=== PATIENT | female | born 1995 | race Hispanic/Latino ===

== ENCOUNTER 2019-08-01 12:52 | Emergency (ER) | payer OTHER, SELFPAY ==
[2019-08-01 12:59] VITALS: BP 121/58; PULSE 90; RESP 17; TEMP 37.2; O2SAT 100
[2019-08-01] MEDS: ACETAMINOPHEN 500 MG TABLET 1000 MG PO (13:22)
[2019-08-01] MEDS: KETOROLAC (*BKC) 60 MG/2 ML VIAL IM (13:23)
--- NOTE | 2019-08-01 13:38 | ED.FEVER ---
HPI - Fever General Chief Complaint: Fever Stated Complaint: fever x 2 days Time Seen by Provider: 08/01/19 12:57 Source: patient Mode of arrival: ambulatory Limitations: no limitations History of Present Illness HPI Narrative: This is a 24 year old female that presents to the ER for cold symptoms since yesterday. Reports cough, fever and headache. Reports she has been taking OTC medications with little relief. Reports she was seen by her PCP for this and influenza was negative. She did not get the flu vaccine this year. Denies vision changes, vomiting, shortness of breath, numbness or weakness. Related Data Allergies Allergy/AdvReac Type Severity Reaction Status Date / Time No Known Allergies Allergy Verified 08/01/19 13:04 Review of Systems Review of Systems: Narrative: CONSTITUTIONAL: Reports fever, chills EYES: Denies visual changes ENT: Denies rhinorrhea, congestion, sore throat, or otalgia. GASTROINTESTINAL: Denies vomiting RESPIRATORY: Reports cough. Denies dyspnea. NEUROLOGIC: Reports headache. Denies numbness, or weakness. All systems reviewed & are unremarkable except as noted in HPI and below [facility] Surgical History Surgical History (Updated 08/01/19 @ 13:52 by Mellissa Singleton PA-C) History of cholecystectomy History of dilation and curettage Family History Family History (Updated 01/22/14 @ 07:13 by DOCTOR UNKNOWN) Grandparent Cerebrovascular accident Family history of type 2 diabetes mellitus Other Family history of malignant neoplasm of ovary Social History Social History Smoking status: Never smoker Alcohol intake: never Gender identity (if verbalized by the patient): Female Exam Narrative: Exam Narrative: GENERAL: Well-appearing, well-nourished, and in no acute distress. HEAD: Normocephalic, atraumatic. EYES: EOMI. ENT: Nares clear, no rhinorrhea or epistaxis. Mucous membranes moist. Oropharynx without tonsillar hypertrophy exudate or other lesions. Bilateral TMs pearly hawthorne non-bulging NECK: Supple. No adenopathy or masses. CHEST: Clear to auscultation. No respiratory distress. No wheezes rales or rhonchi HEART: Regular rate and rhythm. No murmur heard. Normal peripheral pulses. EXTREMITIES: Normal range of motion. No edema. SKIN: Warm, dry, no rash. NEURO: No focal deficits. Alert and oriented x3. PSYCH: Normal mood and affect Course Vital Signs Vital signs: Vital Signs Temperature 98.9 F 08/01/19 12:59 Pulse Rate 90 08/01/19 12:59 Respiratory Rate 17 08/01/19 12:59 Blood Pressure 121/58 L 08/01/19 12:59 Pulse Oximetry 100 08/01/19 12:59 Temperature 98.9 F 08/01/19 12:59 Pulse Rate 90 08/01/19 12:59 Respiratory Rate 17 08/01/19 12:59 Blood Pressure 121/58 L 08/01/19 12:59 Pulse Oximetry 100 08/01/19 12:59 MDM - Fever MDM Narrative Medical decision making narrative: Patient presents emergency department for cold symptoms since yesterday. She is afebrile and nontoxic-appearing. Lungs are clear on exam. Patient is influenza B positive. She is within treatment window and would like to start treatment with Tamiflu. She is to follow-up with her primary care doctor. She was given warnings to return to the ER Lab Data Attestation: I reviewed the patient's lab results. Labs: Influenza A Screen Negative Reference Range: Negative Influenza B Screen Positive Reference Range: Negative Critical Care Time Critical Care Time Critical Care Time: No Discharge Plan Discharge Clinical Impression: Influenza B Patient Disposition: Home, Self-Care Condition: Stable Instructions: Influenza (ED) Additional Instructions: Return to the emergency department for worsening symptoms, or any other concerns Remain well-hydrated, get plenty of rest, no work or school for several days. Take Tamiflu as prescribed. Take Tylenol or Motrin [id number] for pain as needed. Flonase for nasal
== END 2019-08-01 14:11 | disposition home or self-care (01) ==
PROVIDERS: Emergency Provider Emergency Medicine
DX: J10.1 Influenza due to other identified influenza virus with other respiratory manifestations (principal)
CPT/HCPCS: 87804; 96372; 99283; A9270; J1885

== ENCOUNTER 2020-01-06 00:08 | Emergency (ER) | payer OTHER, SELFPAY ==
--- NOTE | ~2020-01-06 | CT_ITS ---
EXAMINATION: CT abdomen pelvis w con DATE: 01/06/2020 01:30 INDICATION: Right lower quadrant abdominal pain TECHNIQUE: Computed tomography (CT) of the abdomen and pelvis was performed with 100 cc Omnipaque 350 intravenous contrast. Automated exposure control and iterative reconstruction technique were employe d. Exam dose: 333.09 mGy-cm total exam DLP. COMPARISON: None. FINDINGS: The lung bases are clear of infiltrate or consolidation. Normal heart size. No pericardial or pleural effusion. Status post cholecystectomy. No bile duct or pancreatic duct dilatation. No hepatic, splenic, pancreatic, and adrenal or renal space-occupying mass lesion is detected. Normal caliber of the abdominal aorta. No intraperitoneal or retroperitoneal or pelvic mass lesion or adeno shawn or ascites. There is enhancing lesion in the right adnexal area, likely an involuting recently ruptured follicle. There is trace free fluid in the cul-de-sac. The uterus is retroflexed. There is moderate diffuse thickening of the urinary bladder wall; recommend clinical correlation for possible cystitis. There is a prominent amount of fecal material in the colon. No evidence of appendicitis. No bowel obs truction, bowel wall thickening, pneumatosis or intraperitoneal free air. Normal caliber of the abdominal aorta. No intraperitoneal or retroperitoneal or pelvic mass lesion or adenopathy or ascites. There is a small fat-containing umbilical hernia. Included skeletal structures are unremarkable. IMPRESSION: Likely recently ruptured enhancing involuting right ovarian cyst with trace free fluid i n the pelvic cul-de-sac Moderate thickening of the urinary bladder wall; recommend clinical correlation for possible cystitis Retroflexed uterus Status post cholecystectomy Reviewed, dictated and finalized at [facility]. Reviewed, dictated and finalized at [facility]. IMPRESSION: Likely recently ruptured enhancing involuting right ovarian cyst w ith trace free fluid in the pelvic cul-de-sac Moderate thickening of the urinary bladder wall; recommend clinical correlation for possible cystitis Retroflexed uterus Status post cholecystectomy
[2020-01-06 00:12] VITALS: BP 108/53; PULSE 77; RESP 18; TEMP 36.4; O2SAT 100
--- NOTE | 2020-01-06 00:25 | ED.ABDPAIN ---
HPI - Abdominal Pain General Chief Complaint: Abdominal Pain Stated Complaint: lower abd pain Time Seen by Provider: 01/06/20 00:20 History of Present Illness HPI narrative: RLQ abdominal pain since Sunday. Constant with occasional paroxysms of intense pain. Stabbing in quality. No radiation. Associated with nausea. H/o cholecystectomy and . Related Data Home Medications Medication Instructions Recorded Confirmed No Home Medications 06/16/19 06/16/19 Allergies Allergy/AdvReac Type Severity Reaction Status Date / Time No Known Allergies Allergy Mild Verified 06/16/19 14:24 Review of Systems Review of Systems: All systems reviewed & are unremarkable except as noted in HPI and below Constitutional: Constitutional: Denies fever(s) Cardiovascular: Cardiovascular: Denies chest pain Respiratory: Respiratory: Denies dyspnea Gastrointestinal: Gastrointestinal: Reports abdominal pain, Reports nausea and Denies vomiting Genitourinary: Genitourinary: Denies hematuria, Denies nocturia and Denies dysuria Musculoskeletal: Musculoskeletal: Denies back pain Neurologic: Denies weakness [facility] Surgical History Surgical History Hx of cholecystectomy Social History Social History Smoking status: Never smoker Gender identity (if verbalized by the patient): Female Exam Const: General: healthy appearing, no acute distress and alert Orientation/consciousness: patient oriented x3 HENMT: Head: normal to inspection Resp: Effort & Inspection: normal respiratory effort Auscultation: clear to auscultation bilaterally, no rales, no rhonchi and no wheezes Cardio: Jugular venous distension: no JVD Rate: regular rate Rhythm: regular rhythm Heart sounds: no murmurs GI: Inspection: non-distended GI Palp: Yes Soft to palpation, Yes Tenderness to palpation present (GI) (RLQ), No Guarding due to palpation present (GI) and No Rebound tenderness present Skin: General skin exam: normal color Neuro: General: patient oriented x3 and moves all extremities Speech: normal speech Psych: Appearance: well kempt Affect: normal affect Course Vital Signs Vital signs: Vital Signs Temperature 36.4 C 01/06/20 00:12 Pulse Rate 77 01/06/20 00:12 Respiratory Rate 18 01/06/20 00:12 Blood Pressure 108/53 L 01/06/20 00:12 Pulse Oximetry 100 01/06/20 00:12 Temperature 36.7 C 01/06/20 02:32 Pulse Rate 64 01/06/20 02:32 Respiratory Rate 14 01/06/20 02:32 Blood Pressure 117/61 01/06/20 02:32 Pulse Oximetry 100 01/06/20 02:32 MDM - Abdominal Pain MDM Narrative Medical decision making narrative: CT shows a small amount of pelvic fluid. Likely ruptured ovarian follicle. Differential Diagnosis Differential diagnosis: Likely acute appendicitis, calculus of kidney and constipation Medical Records Attestation: I reviewed the patient's medical records. Lab Data Attestation: I reviewed the patient's lab results. Result diagrams: 01/06/20 00:23 01/06/20 00:55 Labs: Lab Results 01/06/20 01/06/20 01/06/20 Range/Units 00:23 00:23 00:55 WBC 8.7 (4.5-10.0) K/mm3 RBC 4.55 (4.2-5.4) M/mm3 Hgb 14.0 (12.0-15.0) g/dL Hct 40.8 (37.0-47.0) % MCV 89.7 (80-100) fl MCH 30.8 (26-34) pg MCHC 34.3 (32-36) g/dl RDW 12.3 (11.5-14.5) % Plt Count 174 (150-375) k/mm3 MPV 12.9 H (7.4-10.4) fl Immature Gran % (Auto) 0.3 (0-0.5) % Neut % (Auto) 58.2 (45.5-73.1) % Lymph % (Auto) 33.5 (18.3-44.2) % [place] % (Auto) 7.0 (2.6-8.5) % Eos % (Auto) 0.8 (0-4.4) % Baso % (Auto) 0.2 (0.2-1.2) % Lymph # (Auto) 2.91 (0.9-3.2) K/mm3 [place] # (Auto) 0.6 (0.1-0.6) K/mm3 Eos # (Auto) 0.1 (0-0.3) K/mm3 Baso # (Auto) 0.0 (0.0-0.1) K/mm3 Abs Immat Gran (auto) 0.03 (0.00-0.031) K/mm3 Absol
[2020-01-06 00:31] LABS: Basophils Percent Auto 0.2 % (0.2-1.2); Eosinophils Absolute Auto 0.1 K/mm3 (0-0.3); Eosinophils Percent Auto 0.8 % (0-4.4); Hematocrit 40.8 % (37.0-47.0); Immature Granulocyte Absolute 0.03 K/mm3 (0.00-0.031); Immature Granulocyte Percent A 0.3 % (0-0.5); Lymphocytes Absolute Auto 2.91 K/mm3 (0.9-3.2); Lymphocytes Percent Auto 33.5 % (18.3-44.2); Mean Corpuscular HGB Conc 34.3 g/dl (32-36); Mean Corpuscular Hemoglobin 30.8 pg (26-34); Mean Corpuscular Volume 89.7 fl (80-100); Mean Platelet Volume 12.9 fl (7.4-10.4); Monocytes Absolute Auto 0.6 K/mm3 (0.1-0.6); Neutrophils Percent Auto 58.2 % (45.5-73.1); Platelet Count Result 174 k/mm3 (150-375); Red Blood Count 4.55 M/mm3 (4.2-5.4); Red Cell Distribution Width 12.3 % (11.5-14.5); White Blood Count 8.7 K/mm3 (4.5-10.0)
[2020-01-06 00:41] LABS: Add Urine Microscopic? YES; Appearance Urine Clear (Clear); Bacteria Urine Trace /hpf; Bilirubin Urine Negative (Negative); Blood Urine Negative (Negative); Color Urine Straw (Yellow); Glucose Urine UA Negative (Negative); Ketones Urine Negative (Negative); Leukocyte Esterase Ur 2+ LEU/UL (Negative); Mucus Urine Rare /lpf; Nitrate Urine Negative (Negative); Protein Urine Negative (Negative); RBC Urine 0-2 /hpf (0-2); Specific Grav Ur 1.013 (1.001-1.035); Squamous Epithelial Cell Urine Many /hpf (Few); Urobilinogen Urine Negative mg/dL (<2.0)
[2020-01-06 01:15] LABS: Alanine Aminotransferase 12 U/L (4-35); Albumin Level 4.3 g/dL (3.5-5.1); Alkaline Phosphatase 63 U/L (38-126); Anion Gap 8 mmol/L (8-16); Aspartate Amino Transferase 17 U/L (14-36); Bilirubin,Total 0.2 mg/dL (0.2-1.3); Blood Urea Nitrogen 12 mg/dL (7-17); Calcium 8.8 mg/dL (8.4-10.2); Carbon Dioxide 26 mmol/L (22-30); Chloride 103 mmol/L (98-107); Estimated Glomerular Filt Rate > 60; Glucose 101 mg/dL (65-105); Lipase 69 U/L (23-300); Potassium 3.5 mmol/L (3.4-5.0); Sodium 137 mmol/L (137-145)
[2020-01-06 01:37] VITALS: BP 115/74; PULSE 80; RESP 18; TEMP 36.2; O2SAT 100
[2020-01-06 02:32] VITALS: BP 117/61; PULSE 64; RESP 14; TEMP 36.7; O2SAT 100
[2020-01-06] MEDS: KETOROLAC 30 MG/ML VIAL (*BKC) IV PUSH (02:34)
== END 2020-01-06 02:34 | disposition home or self-care (01) ==
PROVIDERS: Emergency Provider Emergency Medicine
DX: R10.31 Right lower quadrant pain (principal)
CPT/HCPCS: 36415; 74177; 80053; 81001; 81025; 83690; 85025; 87086; 87088; 96374; 99284; J1885; Q9967

== ENCOUNTER 2020-02-03 10:59 | Outpatient (CLI) | payer OTHER, SELFPAY ==
[2020-02-03 13:53] LABS: Beta HCG Quantitative < 2.39 mIU/ML
== END 2020-02-03 11:00 | disposition home or self-care (01) ==
PROVIDERS: Visit Provider Student in an Organized Health Care Education/Training Program
DX: N92.6 Irregular menstruation, unspecified (principal)
CPT/HCPCS: 36415; 84702

== ENCOUNTER 2020-02-22 17:01 | Emergency (ER) | payer OTHER, SELFPAY ==
--- NOTE | ~2020-02-22 | CT_ITS ---
EXAMINATION: CT abdomen pelvis w con INDICATION: Lower abdominal pain TECHNIQUE: Computed tomographic images of the abdomen and pelvis were obtained after the administrati on of 100 cc of Omnipaque 350 intravenous contrast. The dose-length product (DLP) was 311.83 mGy-cm. Automated exposure control and iterative reconstruction technique were employed. COMPARISON: 12/16/2016 FINDINGS: The lung bases are clear. The heart size is normal. The gallbladder is surgically absent. T he liver, spleen, pancreas, and adrenal glands are normal. The kidneys are unremarkable. No pathologi monty enlarged abdominal or pelvic lymph nodes are identified. There is no free intraperitoneal gas o r evidence of bowel obstruction. There is a small volume of free fluid in the pelvis, likely physiolo gic. A moderate volume of colonic stool is present. The appendix is normal. IMPRESSION: 1. No CT correlate for the patient's symptoms. Reviewed, dictated and finalized at [facility].
[2020-02-22 17:17] VITALS: BP 110/46; PULSE 89; RESP 18; TEMP 36.5; O2SAT 100
[2020-02-22 18:16] LABS: Basophils Percent Auto 0.3 % (0.2-1.2); Eosinophils Percent Auto 0.5 % (0-4.4); Hematocrit 38.4 % (37.0-47.0); Hemoglobin 13.1 g/dL (12.0-15.0); Immature Granulocyte Absolute 0.01 K/mm3 (0.00-0.031); Immature Granulocyte Percent A 0.2 % (0-0.5); Immature Platelet Fraction Pct 13.8 % (0.9-11.2); Lymphocytes Absolute Auto 2.54 K/mm3 (0.9-3.2); Lymphocytes Percent Auto 40.1 % (18.3-44.2); Mean Corpuscular HGB Conc 34.1 g/dl (32-36); Mean Corpuscular Hemoglobin 30.8 pg (26-34); Mean Corpuscular Volume 90.1 fl (80-100); Mean Platelet Volume 13.9 fl (7.4-10.4); Monocytes Absolute Auto 0.6 K/mm3 (0.1-0.6); Monocytes Percent Auto 9.1 % (2.6-8.5); Neutrophils Absolute Auto 3.2 K/mm3 (1.3-6.7); Neutrophils Percent Auto 49.8 % (45.5-73.1); Platelet Count Result 144 k/mm3 (150-375); Red Blood Count 4.26 M/mm3 (4.2-5.4); Red Cell Distribution Width 12.2 % (11.5-14.5); White Blood Count 6.3 K/mm3 (4.5-10.0)
[2020-02-22 18:20] LABS: Add Urine Microscopic? YES; Appearance Urine Clear (Clear); Bacteria Urine Trace /hpf; Bilirubin Urine Negative (Negative); Blood Urine Negative (Negative); Color Urine Yellow (Yellow); Glucose Urine UA Negative (Negative); Ketones Urine Negative (Negative); Leukocyte Esterase Ur Trace LEU/UL (Negative); Mucus Urine Rare /lpf; Nitrate Urine Negative (Negative); Protein Urine Negative (Negative); RBC Urine 0-2 /hpf (0-2); Specific Grav Ur 1.015 (1.001-1.035); Squamous Epithelial Cell Urine Occasional /hpf (Few); Urobilinogen Urine Negative mg/dL (<2.0); WBC Urine 0-3 /hpf
[2020-02-22 18:25] LABS: Alanine Aminotransferase 12 U/L (4-35); Albumin Level 4.2 g/dL (3.5-5.1); Alkaline Phosphatase 46 U/L (38-126); Anion Gap 7 mmol/L (8-16); Aspartate Amino Transferase 20 U/L (14-36); Bilirubin,Total 0.4 mg/dL (0.2-1.3); Blood Urea Nitrogen 9 mg/dL (7-17); Calcium 9.3 mg/dL (8.4-10.2); Carbon Dioxide 28 mmol/L (22-30); Chloride 104 mmol/L (98-107); Estimated CRCL calculation 133 ml/min; Estimated Glomerular Filt Rate > 60; Glucose 107 mg/dL (65-105); Lipase 57 U/L (23-300); Potassium 3.5 mmol/L (3.4-5.0); Sodium 139 mmol/L (137-145)
[2020-02-22] MEDS: KETOROLAC 30 MG/ML VIAL (*BKC) IV PUSH (19:33)
--- NOTE | 2020-02-22 21:06 | ED.ABDPAIN ---
HPI - Abdominal Pain General Chief Complaint: Abdominal Pain Stated Complaint: abdominal pain Time Seen by Provider: 02/22/20 17:28 Source: patient Mode of arrival: ambulatory Limitations: no limitations History of Present Illness HPI narrative: 24-year-old with no previous medical problems here with complaints of lower abdominal pain since last 1 day. Patient states the pain is more intense today. She denies any nausea or vomiting. Denies any vaginal bleeding or discharge. No urinary symptoms at this time. MD elicited complaint: abdominal pain Pertinent past history: none Onset (ago): day(s) (1) Pain Consistency: constant Location: suprapubic Severity: mild Quality: aching Radiation: RLQ Exacerbating factors: nothing Relieving factors: nothing Related Data Home Medications Medication Instructions Recorded Confirmed No Home Medications 02/22/20 02/22/20 Allergies Allergy/AdvReac Type Severity Reaction Status Date / Time No Known Allergies Allergy Verified 02/22/20 18:05 Review of Systems Review of Systems: All systems reviewed & are unremarkable except as noted in HPI and below Constitutional: Constitutional: Reports no additional constitutional complaints Eyes: Eyes: Reports as per HPI ENT: Reports system reviewed and no additional complaints, except as documented Cardiovascular: Cardiovascular: Reports no additional cardiovascular complaints Respiratory: Respiratory: Reports no additional respiratory complaints Gastrointestinal: Gastrointestinal: Reports as per HPI Genitourinary: Genitourinary: Reports no additional female genitourinary complaints Musculoskeletal: Musculoskeletal: Reports no additional musculoskeletal complaints [facility] Surgical History Surgical History History of cholecystectomy History of dilation and curettage Family History Family History Grandparent Cerebrovascular accident Family history of type 2 diabetes mellitus Other Family history of malignant neoplasm of ovary Social History Social History Smoking status: Never smoker Alcohol intake: never Gender identity (if verbalized by the patient): Female Exam Narrative: Exam Narrative: GENERAL: Well-appearing, well-nourished, and in no acute distress. HEAD: Normocephalic, atraumatic. EYES: PERRLA and EOMI. ENT: Nares clear, Mucous membranes moist. NECK: Supple. CHEST: Clear to auscultation. No respiratory distress. HEART: Regular rate and rhythm. No murmur heard. Normal peripheral pulses. ABDOMEN: Soft, mild tender in the suprapubic and right lower quadrant area, nondistended, normal active bowel sounds. EXTREMITIES: Normal range of motion. No edema. SKIN: Warm, dry, no rash. NEURO: No focal deficits. Alert and oriented x3. PSYCH: Normal mood and affect. Course Vital Signs Vital signs: Vital Signs Temperature 36.5 C 02/22/20 17:17 Pulse Rate 89 02/22/20 17:17 Respiratory Rate 18 02/22/20 17:17 Blood Pressure 110/46 L 02/22/20 17:17 Pulse Oximetry 100 02/22/20 17:17 Temperature 36.5 C 02/22/20 17:17 Pulse Rate 89 02/22/20 17:17 Respiratory Rate 18 02/22/20 17:17 Blood Pressure 110/46 L 02/22/20 17:17 Pulse Oximetry 100 02/22/20 17:17 MDM - Abdominal Pain MDM Narrative Medical decision making narrative: With a history of lower abdominal pain mostly radiating to right lower quadrant concerned about acute appendicitis will do CBC chemistry and a CT of the abdomen. Patient is complaining of abdominal pain we will give her 30 mg of IV Toradol. Findings. Most likely could be a small ruptured ovarian cyst. Advised her to follow-up with her primary doctor or [facility] for further management. Lab Data Result diagrams: 02/22/20 18:06 02/22/20 18:06 Labs: Lab Results
[2020-02-22 21:32] VITALS: BP 99/65; PULSE 72; RESP 18; TEMP 36.8; O2SAT 99
== END 2020-02-22 21:40 | disposition home or self-care (01) ==
PROVIDERS: Emergency Provider Family Medicine
DX: R10.31 Right lower quadrant pain (principal); R10.32 Left lower quadrant pain
CPT/HCPCS: 36415; 74177; 80053; 81001; 81025; 83690; 85025; 85055; 96374; 99284; J1885; Q9967

== ENCOUNTER 2020-03-07 09:56 | Emergency (ER) | payer OTHER, SELFPAY ==
--- NOTE | ~2020-03-07 | US_ITS ---
EXAMINATION: US OB <=14 wk fetus w TV DATE: 03/07/2020 11:53 INDICATION: Vaginal bleeding Comparison:No prior studies for comparison. TECHNIQUE: Multiple transabdominal and endovaginal sonographic images of the pelvis performed. FINDINGS: The uterus measures 8.3 x 4.1 x 4.5 cm. The endometrial complex measures 6 mm. No intrauter ine is identified. The right ovary measures 3.3 x 1.7 x 1.8 cm and the left ovary measures 3.2 x 2 x 1.6 cm. There are small follicles in each ovary. There is normal Doppler signal in both ovaries. There is trace free fluid in the pelvis. There are no abnormal masses seen on either side. IMPRESSION: 1. Unremarkable pelvic ultrasound. No evidence for intrauterine . Differential diagnosis inc ludes very early intrauterine , failed and ectopic . Recommend follow-up with serial quantitative beta-hCG levels and ultrasound as clinically indicated. Reviewed, dictated and finalized at [facility]. IMPRESSION: 1. Unremarkable pelvic ultrasound. No evidence for intrauterine . Diff erential diagnosis includes very early intrauterine , failed and ectopic . Recommend follow-up with serial quantitative beta-hCG l evels and ultrasound as clinically indicated.
[2020-03-07 09:59] VITALS: BP 105/52; PULSE 65; RESP 18; TEMP 36.2; O2SAT 100
--- NOTE | 2020-03-07 10:34 | ED.FEMALEGU ---
HPI - Female Genitourinary General Chief complaint: Vaginal Bleeding Stated complaint: Vaginal Bleeding, 4-5 weeks preg Time Seen by Provider: 03/07/20 10:13 Source: patient Mode of arrival: ambulatory Limitations: no limitations History of Present Illness HPI Narrative: This is a 24-year-old G7, P2, about 4 to 5 weeks that presents to the emergency department for vaginal bleeding since last night. Reports yesterday she noted some light spotting. Today when she got up the bleeding was a little heavier which concerned her and prompted her to be seen. Denies fever, abdominal pain, pelvic cramping, or dysuria. Related Data Home Medications Medication Instructions Recorded Confirmed No Home Medications 03/07/20 03/07/20 Allergies Allergy/AdvReac Type Severity Reaction Status Date / Time No Known Allergies Allergy Mild Verified 03/07/20 10:09 Review of Systems Review of Systems: Narrative: CONSTITUTIONAL: Denies fever GASTROINTESTINAL: Denies abdominal pain, nausea, vomiting GENITOURINARY: Denies dysuria All systems reviewed & are unremarkable except as noted in HPI and below PMFSH Past Medical History Medical History (Updated 03/07/20 @ 12:51 by Mellissa Singleton PA-C) Miscarriage x 7 Surgical History Surgical History (Updated 02/03/20 @ 10:31 by Sydnie Garg MA) History of section Hx of cholecystectomy Social History Social History Smoking status: Never smoker Gender identity (if verbalized by the patient): Female Exam Narrative: Exam Narrative: GENERAL: Well-appearing, well-nourished, and in no acute distress. HEAD: Normocephalic, atraumatic. EYES: EOMI. CHEST: Clear to auscultation. No respiratory distress. No wheezes rales or rhonchi HEART: Regular rate and rhythm. No murmur heard. Normal peripheral pulses. ABDOMEN: Soft, nontender, nondistended, normal active bowel sounds. EXTREMITIES: Normal range of motion. No edema. SKIN: Warm, dry, no rash. NEURO: No focal deficits. Alert and oriented x3. PSYCH: Normal mood and affect PELVIC: Normal-appearing cervix, small amount of red blood in the vaginal vault Course Vital Signs Vital signs: Vital Signs Temperature 97.1 F L 03/07/20 09:59 Pulse Rate 65 03/07/20 09:59 Respiratory Rate 18 03/07/20 09:59 Blood Pressure 105/52 L 03/07/20 09:59 Pulse Oximetry 100 03/07/20 09:59 Temperature 97.1 F L 03/07/20 09:59 Pulse Rate 55 L 03/07/20 12:06 Respiratory Rate 20 03/07/20 12:06 Blood Pressure 101/52 L 03/07/20 12:06 Pulse Oximetry 99 03/07/20 12:06 MDM - Female Genitourinary MDM Narrative Medical decision making narrative: Patient presents to the emergency department for vaginal bleeding, about 4 to 5 weeks by LMP. She is afebrile and nontoxic-appearing. Vitals are stable. Her blood pressure appears to run in the 100s/50s-60s, which is what she has been today. CBC with hemoglobin of 12.7. Quantitative beta-hCG is 20.28. Pelvic ultrasound is unremarkable. No evidence for IUP. Differential could be early , failed or ectopic . No abnormal masses seen in the adnexa. Small amount of blood on pelvic exam. Patient is O+. Spoke with Dr. Beach about patient and workup. Would like patient to be sent with prescription for another quantitative beta hCG and progesterone level. This will be done on Sunday and she has an appointment to follow-up on Sunday. Patient is stable and felt appropriate for further outpatient evaluation. She was given warnings to return the ER Lab Data Attestation: I reviewed the patient's lab results. Result diagrams: 03/07/20 10:53 Labs: Lab Results 03/07/20 03/07/20 03/07/20 Range/Units 10:53 10:53 10:53 WBC 5.2 (4.5-10.0) K/mm3 RBC 4.14 L (4.2-5.4) M/mm3 Hgb 12.7 (12.0-15.0) g/dL Hct 37.5 (37.0-47.0) % MCV 90.6 (80-100
[2020-03-07 10:43] VITALS: BP 97/61; PULSE 59
[2020-03-07 10:44] VITALS: BP 102/58; PULSE 63
[2020-03-07 10:45] VITALS: BP 99/65; PULSE 86
[2020-03-07 11:00] LABS: Basophils Percent Auto 0.4 % (0.2-1.2); Eosinophils Percent Auto 0.8 % (0-4.4); Hematocrit 37.5 % (37.0-47.0); Hemoglobin 12.7 g/dL (12.0-15.0); Immature Granulocyte Absolute 0.01 K/mm3 (0.00-0.031); Immature Granulocyte Percent A 0.2 % (0-0.5); Lymphocytes Percent Auto 36.3 % (18.3-44.2); Mean Corpuscular HGB Conc 33.9 g/dl (32-36); Mean Corpuscular Hemoglobin 30.7 pg (26-34); Mean Corpuscular Volume 90.6 fl (80-100); Monocytes Absolute Auto 0.4 K/mm3 (0.1-0.6); Monocytes Percent Auto 8.4 % (2.6-8.5); Neutrophils Absolute Auto 2.8 K/mm3 (1.3-6.7); Neutrophils Percent Auto 53.9 % (45.5-73.1); Platelet Count Result 132 k/mm3 (150-375); Red Blood Count 4.14 M/mm3 (4.2-5.4); Red Cell Distribution Width 12.4 % (11.5-14.5); White Blood Count 5.2 K/mm3 (4.5-10.0)
[2020-03-07] MEDS: SODIUM CHLORIDE 0.9% IV 1,000 ML 999 ML IV CONT (11:13)
[2020-03-07 11:30] LABS: Beta HCG Quantitative 20.28 mIU/ML
[2020-03-07 12:06] VITALS: BP 101/52; PULSE 55; RESP 20; O2SAT 99
[2020-03-07 13:04] VITALS: BP 102/55; PULSE 60; RESP 20; O2SAT 99
== END 2020-03-07 13:06 | disposition home or self-care (01) ==
PROVIDERS: Physician Assistant; Emergency Provider Family Medicine
DX: O20.0 Threatened abortion (principal); Z3A.01 Less than 8 weeks gestation of pregnancy
CPT/HCPCS: 36415; 76801; 76817; 81025; 84702; 85025; 85461; 96360; 99284; J7030

== ENCOUNTER 2020-03-09 15:22 | Outpatient (CLI) | payer OTHER, SELFPAY ==
[2020-03-09 16:26] LABS: Beta HCG Quantitative < 2.39 mIU/ML
[2020-03-12 07:01] LABS: Progesterone 0.3 ng/mL (***)
== END 2020-03-09 15:23 | disposition home or self-care (01) ==
LOC: ANHLAB 15:24
PROVIDERS: Visit Provider Student in an Organized Health Care Education/Training Program
DX: N92.6 Irregular menstruation, unspecified (principal)
CPT/HCPCS: 36415; 84144; 84702

== ENCOUNTER 2020-05-03 13:24 | Outpatient (CLI) | payer OTHER, SELFPAY ==
[2020-05-03 14:22] LABS: Beta HCG Quantitative 191.62 mIU/ML
[2020-05-06 14:33] LABS: Progesterone 20.1 ng/mL (***)
== END 2020-05-03 13:25 | disposition home or self-care (01) ==
LOC: ANHLAB 13:26
PROVIDERS: Visit Provider Student in an Organized Health Care Education/Training Program
DX: N91.2 Amenorrhea, unspecified (principal); Z87.59 Personal history of other complications of pregnancy, childbirth and the puerperium
CPT/HCPCS: 36415; 84144; 84702

== ENCOUNTER 2020-05-05 11:22 | Outpatient (CLI) | payer OTHER, SELFPAY ==
[2020-05-08 13:58] LABS: Progesterone 17.1 ng/mL (***)
== END 2020-05-05 11:23 | disposition home or self-care (01) ==
PROVIDERS: Visit Provider Student in an Organized Health Care Education/Training Program
DX: Z34.90 Encounter for supervision of normal pregnancy, unspecified, unspecified trimester (principal); Z87.59 Personal history of other complications of pregnancy, childbirth and the puerperium; Z3A.00 Weeks of gestation of pregnancy not specified
CPT/HCPCS: 36415; 84144; 84702

== ENCOUNTER 2020-05-14 16:34 | Outpatient (CLI) | payer OTHER, SELFPAY ==
--- NOTE | ~2020-05-14 | US_ITS ---
EXAMINATION: US OB <=14 wk fetus w TV EXAM DATE: 05/14/2020 17:07 INDICATION: Z34.90 - Encounter for supervision of normal , unspecified, unspecified trimeste r dating, early ob . 1st trimester. TECHNIQUE: Pelvic obstetrical transabdominal sonogram was performed by a technologist. There are mu ltiple grayscale and Doppler images available for interpretation. FINDINGS: Uterus measures 7.7 x 5.3 x 6.2 cm. There is intrauterine gestation sac. No pole ketan ntified at this time. The mean sac diameter of 9 mm corresponds to estimated gestational age by ultra sound of 5 weeks 3 days. Yolk sac is identified. There is no sonographic evidence of subchorionic hemorrhage. The ovaries were imaged and are morphologically normal, left likely having the corpus l uteal cyst. IMPRESSION: Early intrauterine gestation sac, yolk sac. No pole identified at this time. Consid er 1-2 week follow-up exam. Reviewed, dictated and finalized at [facility]. T INDUSTRIAL IMPRESSION: Early intrauterine gestation sac, yolk sac. No pole identifie d at this time. Consider 1-2 week follow-up exam.
== END 2020-05-14 16:35 | disposition home or self-care (01) ==
PROVIDERS: Visit Provider Student in an Organized Health Care Education/Training Program
DX: Z34.90 Encounter for supervision of normal pregnancy, unspecified, unspecified trimester (principal); Z3A.00 Weeks of gestation of pregnancy not specified
CPT/HCPCS: 76801; 76817

== ENCOUNTER 2020-05-26 15:18 | Outpatient (CLI) | payer OTHER, SELFPAY ==
--- NOTE | ~2020-05-26 | US_ITS ---
EXAMINATION: US OB <= 14 weeks fetus DATE: 05/26/2020 15:53 INDICATION: First trimester dating TECHNIQUE: Real-time pelvic transabdominal and transvaginal ultrasound was performed. COMPARISON: 05/14/2020 FINDINGS: The uterus measures 10.9 x 6.4 x 6.7 cm. There is an intrauterine gestational sac. A yolk sac is identified. heart motion is identified measuring 142 beats per minute (bpm) by M-mode Do ppler. The crown rump length measures 9 mm , which correlates with an estimated gestational age of 6 weeks and 6 day(s) (+/-) 4 day(s). The right ovary is not visualized however no right adnexal abnormality is seen. The left ovary measur es 3.8 x 3.7 x 1.9 cm. There is normal vascular flow in the left ovary. There is no free fluid in the pelvis. IMPRESSION: 1. Live intrauterine with an estimated gestational age of 6 weeks and 6 day(s) (+/-) 4 day( s) and an estimated delivery date of 01/13/2021. Reviewed, dictated and finalized at location [facility]. PANEL PADDER IMPRESSION: 1. Live intrauterine with an estimated gestational age of 6 weeks and 6 day(s) (+/-) 4 day(s) and an estimated delivery date of 01/13/2021.
== END 2020-05-26 15:19 | disposition home or self-care (01) ==
PROVIDERS: Visit Provider Student in an Organized Health Care Education/Training Program
DX: O36.80X0 Pregnancy with inconclusive fetal viability, not applicable or unspecified (principal); Z3A.01 Less than 8 weeks gestation of pregnancy
CPT/HCPCS: 76801

== ENCOUNTER 2020-06-09 16:02 | Outpatient (CLI) | payer OTHER, SELFPAY ==
[2020-06-09 16:51] LABS: Basophils Percent Auto 0.3 % (0.2-1.2); Eosinophils Percent Auto 0.3 % (0-4.4); Hematocrit 36.6 % (37.0-47.0); Hemoglobin 12.7 g/dL (12.0-15.0); Immature Granulocyte Absolute 0.02 K/mm3 (0.00-0.031); Immature Granulocyte Percent A 0.3 % (0-0.5); Immature Platelet Fraction Pct 17.3 % (0.9-11.2); Lymphocytes Absolute Auto 2.04 K/mm3 (0.9-3.2); Lymphocytes Percent Auto 28.9 % (18.3-44.2); Mean Corpuscular HGB Conc 34.7 g/dl (32-36); Mean Corpuscular Hemoglobin 31.1 pg (26-34); Mean Corpuscular Volume 89.7 fl (80-100); Mean Platelet Volume 13.6 fl (7.4-10.4); Monocytes Absolute Auto 0.5 K/mm3 (0.1-0.6); Monocytes Percent Auto 7.2 % (2.6-8.5); Neutrophils Absolute Auto 4.4 K/mm3 (1.3-6.7); Platelet Count Result 149 k/mm3 (150-375); Red Blood Count 4.08 M/mm3 (4.2-5.4); Red Cell Distribution Width 12.8 % (11.5-14.5); White Blood Count 7.1 K/mm3 (4.5-10.0)
[2020-06-09 17:11] LABS: Add Urine Microscopic? YES; Appearance Urine Clear (Clear); Bacteria Urine 1+ /hpf; Bilirubin Urine Negative (Negative); Blood Urine Negative (Negative); Color Urine Straw (Yellow); Glucose Urine UA Negative (Negative); Ketones Urine Negative (Negative); Leukocyte Esterase Ur 1+ LEU/UL (NEGATIVE); Mucus Urine Rare /lpf; Nitrate Urine Negative (Negative); Protein Urine Negative (Negative); RBC Urine 0-2 /hpf (0-2); Specific Grav Ur 1.011 (1.001-1.035); Squamous Epithelial Cell Urine Occasional /hpf (Few); Urobilinogen Urine Negative mg/dL (<2.0); WBC Urine 0-3 /hpf (0-3)
[2020-06-09 17:40] LABS: HIV 1/2 Ab P24 Ag Result Negative (Negative)
[2020-06-09 18:21] LABS: Hepatitis B Surface Antigen Negative (Negative)
[2020-06-09 18:37] LABS: Hepatitis C Virus Antibody Negative (Negative)
[2020-06-09 19:30] LABS: Vitamin D 25 Hydroxy < 12.8 ng/mL
[2020-06-10 09:10] LABS: Rapid Plasma Reagin Non-Reactive (NonReactive)
[2020-06-11 13:48] LABS: Varicella IgG Antibody <135.00 Index (>=165.00)
== END 2020-06-09 16:03 | disposition home or self-care (01) ==
LOC: ANHLAB 16:03
PROVIDERS: Visit Provider Student in an Organized Health Care Education/Training Program
DX: Z34.90 Encounter for supervision of normal pregnancy, unspecified, unspecified trimester (principal); Z3A.00 Weeks of gestation of pregnancy not specified
CPT/HCPCS: 36415; 81001; 82306; 84443; 85025; 85055; 86592; 86703; 86762; 86787; 86803; 86850; 86900; 86901; 87086; 87088; 87340; G0432

== ENCOUNTER 2020-07-07 11:22 | Emergency (ER) | payer OTHER, SELFPAY ==
[2020-07-07] VITALS (7 sets, daily range): BP systolic 89–104; BP diastolic 47–58; PULSE 62–89; RESP 17–21; TEMP 37; O2SAT 96–100
--- NOTE | ~2020-07-07 | XR_ITS ---
EXAMINATION: XR chest 1V portable 07/07/2020 12:14 INDICATION: Dyspnea. Left-sided chest pain PROCEDURE: AP portable chest COMPARISON: 07/02/2018 FINDINGS: The lungs are clear. The cardiomediastinal silhouette is within normal limits. There are no pleural effusions. There is no pneumothorax suspected. IMPRESSION: 1: NO ACUTE CARDIOPULMONARY DISEASE. Reviewed, dictated and finalized at location B. PSYCHOTHERAPIST
--- NOTE | 2020-07-07 11:23 | ECG_ITS ---
Measurements Intervals [place] Rate: 74 P: 53 DC: 116 QRS: 53 QRSD: 97 T: 24 QT: 423 QTc: 470 Interpretive Statements SINUS RHYTHM WITH SHORT DC INTERVAL BORDERLINE ST-T WAVE ABNORMALITY- INFERIOR LEADS BASELINE ARTIFACT- II, III, AVR, AVL, AVF BORDERLINE ECG Electronically Signed On 07-07-2020 11:50:20 [employer]NA[employer] TRA[employer] by Sterling Anton D.O.
--- NOTE | 2020-07-07 11:47 | ED.GENADULT ---
HPI - General Adult General Chief complaint: Chest Pain Stated complaint: 14 weeks preg, CP & SOB Time Seen by Provider: 07/07/20 11:29 Source: RN notes reviewed History of Present Illness HPI narrative: Patient presents to emergency department from home for left upper quadrant abdominal pain. Patient states the pain began earlier today the pain is described as sharp and stabbing does not radiate patient does note associated shortness of breath and states is worse with a deep breath. Patient states that she has had similar episodes of pain since she was a child and that they will flareup at times and does not recall a specific reason why the pain flares up but states this is consistent with her previous episode she took no previous pain medication at home she states she not eat today. The patient is approximate [address] up with Dr. Ignacio she denies any fevers or chills chest pain nausea vomiting diarrhea vaginal bleeding or any other symptom patient states she has had an ultrasound showing a live intrauterine Related Data Home Medications Medication Instructions Recorded Confirmed prenat.vits,osmar,[id number] 1 tablet PO DAILY 06/09/20 07/07/20 Allergies Allergy/AdvReac Type Severity Reaction Status Date / Time No Known Allergies Allergy Mild Verified 07/07/20 11:32 Review of Systems Review of Systems: Narrative: Gen.: Denies fevers or chills ENT: Denies congestion Respiratory: Denies shortness of breath or cough CV: Denies chest pain or palpitations GI: See HPI reports Musculoskeletal: Denies back pain or muscle pain Neuro: Denies numbness, tingling, weakness or focal weakness Skin: Denies rash Except as documented, all other systems reviewed and negative [facility] Past Medical History Medical History Miscarriage x 5 Surgical History Surgical History History of section History of cholecystectomy History of dilation and curettage x 2 Hx of cholecystectomy Family History Family History Grandparent Cerebrovascular accident Family history of type 2 diabetes mellitus Other Family history of malignant neoplasm of ovary Social History Social History Smoking status: Never smoker Alcohol intake: never Gender identity (if verbalized by the patient): Female Exam Narrative: Exam Narrative: APPEARANCE: No acute distress, nontoxic, resting in bed HEENT: Normocephalic, atraumatic, OMM RESPIRATORY: No respiratory distress, clear to auscultation bilaterally with no rhonchi wheezing or rales CARDIOVASCULAR: RRR s murmur ABDOMINAL: Soft, nondistended point tenderness in the left upper lateral abdomen there is no tenderness over the left anterior abdomen right upper quadrant right lower quadrant left lower quadrant no rebound or guarding pain increased with deep inspiration rotation of the torso MUSCULOSKELETAl: Moves all extremities. No clubbing, cyanosis or edema. NEURO: Awake and alert. Following commands, speech normal, no focal deficits SKIN:: Warm, dry. Normal Color PSYCHIATRIC: Normal affect/mood Course Course Emergency Course: Patient states pain is completely resolved following Tylenol Called and discussed with Dr. Rubio for Dr. Ignacio presentation work-up agrees with plan for discharge follow-up as an outpatient Patient got up and ambulate in the emergency department no pain at this time Patient states that they are feeling much better at this time. States abdominal pain has resolved. Repeat abdominal exam shows the patient's abdomen to be soft and nontender. Discussed with patient results of workup and diagnosis. Discussed need for follow-up with primary care physician, reasons to return to the emergency department in proper use of
[2020-07-07 11:50] LABS: Basophils Percent Auto 0.3 % (0.2-1.2); Eosinophils Percent Auto 0.2 % (0-4.4); Hematocrit 39.7 % (37.0-47.0); Hemoglobin 13.5 g/dL (12.0-15.0); Immature Granulocyte Absolute 0.01 K/mm3 (0.00-0.031); Immature Granulocyte Percent A 0.2 % (0-0.5); Immature Platelet Fraction Pct 14.9 % (0.9-11.2); Lymphocytes Absolute Auto 1.81 K/mm3 (0.9-3.2); Lymphocytes Percent Auto 28.8 % (18.3-44.2); Mean Corpuscular Volume 91.3 fl (80-100); Mean Platelet Volume 13.2 fl (7.4-10.4); Monocytes Absolute Auto 0.4 K/mm3 (0.1-0.6); Monocytes Percent Auto 5.9 % (2.6-8.5); Neutrophils Absolute Auto 4.1 K/mm3 (1.3-6.7); Neutrophils Percent Auto 64.6 % (45.5-73.1); Platelet Count Result 136 k/mm3 (150-375); Red Blood Count 4.35 M/mm3 (4.2-5.4); Red Cell Distribution Width 12.7 % (11.5-14.5); White Blood Count 6.3 K/mm3 (4.5-10.0)
[2020-07-07] MEDS: FAMOTIDINE 20 MG/2 ML VIAL IV PUSH (11:50)
[2020-07-07 11:57] LABS: INR 0.9; Prothrombin Time 12.4 Seconds (11.1-14.7)
[2020-07-07 11:58] LABS: Partial Thromboplastin Time 26.4 SECONDS (22.3-36.8)
[2020-07-07 12:04] LABS: Alanine Aminotransferase 12 U/L (4-35); Alkaline Phosphatase 46 U/L (38-126); Anion Gap 6 mmol/L (8-16); Aspartate Amino Transferase 23 U/L (14-36); Bilirubin,Total 0.4 mg/dL (0.2-1.3); Blood Urea Nitrogen 8 mg/dL (7-17); Carbon Dioxide 23 mmol/L (22-30); Chloride 106 mmol/L (98-107); Estimated CRCL calculation 159 ml/min; Estimated Glomerular Filt Rate > 60; Glucose 87 mg/dL (65-105); Lipase 45 U/L (23-300); Sodium 135 mmol/L (137-145)
[2020-07-07 12:08] LABS: Potassium 4.1 mmol/L (3.4-5.0)
[2020-07-07 12:13] LABS: Troponin I < 0.012 ng/mL (0.000-0.034)
[2020-07-07 13:14] LABS: Add Urine Microscopic? YES; Appearance Urine Clear (Clear); Bacteria Urine Trace /hpf; Bilirubin Urine Negative (Negative); Blood Urine Negative (Negative); Color Urine Yellow (Yellow); Glucose Urine UA Negative (Negative); Ketones Urine 1+ mg/dL (Negative); Leukocyte Esterase Ur Trace LEU/UL (Negative); Mucus Urine Heavy /lpf; Nitrate Urine Negative (Negative); Protein Urine 1+ mg/dL (Negative); Squamous Epithelial Cell Urine Many /hpf (Few); Transitional Epi Cells Urine Rare /hpf (None Seen)
[2020-07-07 13:17] LABS: Specific Grav Ur 1.033 (1.001-1.035)
[2020-07-07] MEDS: SODIUM CHLORIDE 0.9% IV 1,000 ML 999 ML IV CONT (13:59)
--- NOTE | 2020-07-07 15:09 | PC.NURSE ---
Patient ambulatory without difficulty and in no distress. patient denies any dizziness at this time, EDP notified.
== END 2020-07-07 15:38 | disposition home or self-care (01) ==
PROVIDERS: Emergency Provider Emergency Medicine; PCP Physician Assistant
DX: R10.12 Left upper quadrant pain (principal); O26.92 Pregnancy related conditions, unspecified, second trimester; Z3A.14 14 weeks gestation of pregnancy
CPT/HCPCS: 36415; 71045; 80048; 80076; 81001; 83690; 84484; 85025; 85055; 85610; 85730; 93005; 96361; 96365; 96375; 99284; J0131; J7030

== ENCOUNTER 2020-08-30 10:07 | Outpatient (CLI) | payer OTHER, SELFPAY ==
--- NOTE | ~2020-08-30 | US_ITS ---
EXAMINATION: US OB /maternal detail EXAM DATE: 08/30/2020 10:54 INDICATION: Z34.82 - Encounter for supervision of other normal , second trimester. Anatomic survey. 2nd trimester. TECHNIQUE: Pelvic obstetrical transabdominal sonogram was performed by a technologist. There are mu ltiple grayscale and Doppler images available for interpretation. Comparison is made to prior examina tion from 05/26/2020. FINDINGS: There is a single fetus identified in breech presentation with a heart rate of 142 beats pe r minute. The placenta is located in the anterior position. There is no sonographic evidence of retr oplacental hemorrhage identified. The amniotic fluid index is 14.0 centimeters, which is normal. Plac ental margin to internal cervical os distance is 4.3 cm. BIOMETRIC DATA: Biparietal diameter (BPD): 4.9 cm ----------------> 20 weeks 6 days. Head circumference (HC): 18.2 cm ----------------> 20 weeks 4 days. Abdominal circumference (AC): 16.9 cm ----------> 21 weeks 6 days. Femur length (FL): 3.4 cm --------------------------> 20 weeks 3 days. These measurements are concordant. HC/AC ratio is 1.07 (The 5th -- 95th percentile range is 1.06-1.25. Estimated weight is 405 g +/- 61 g. This is the 47th percentile when the currently reported cl inical gestation age 21 weeks 1 day, clinical estimated date of delivery (CAREY-OPE) 01/09 is used. Feta l estimated gestational age based on measurements from this exam is 21 weeks 0 days, with an estimate d date of delivery (CAREY-AUA) 01/10. ANATOMIC SURVEY: The following anatomy is identified and is sonographically normal in appearance: Cerebral ventricles Cerebellum Cisterna magna Nuchal fold CTL-spine Four-chamber heart Diaphragm Stomach Kidneys Bladder Three-vessel cord Cord insertion IMPRESSION: 1. Single fetus in vertex presentation with heart rate 142 beats per minute. 2. Estimated weight of 405 grams, 47th percentile using the currently reported clinical gestat ion age of 21 weeks 1 day, CAREY(OPE) 01/09. 3. Normal anatomic survey. 4. Normal MARVIN 14 cm. Reviewed, dictated and finalized at location A. IMPRESSION: 1. Single fetus in vertex presentation with heart rate 142 beats per minute. 2. Estimated weight of 405 grams, 47th percentile using the currently re ported clinical gestation age of 21 weeks 1 day, CAREY(OPE) 01/09. 3. Normal anatomic survey. 4. Normal MARVIN 14 cm.
== END 2020-08-30 10:08 | disposition home or self-care (01) ==
PROVIDERS: PCP Physician Assistant; Visit Provider Student in an Organized Health Care Education/Training Program
DX: Z34.82 Encounter for supervision of other normal pregnancy, second trimester (principal); Z3A.21 21 weeks gestation of pregnancy
CPT/HCPCS: 76805

== ENCOUNTER 2020-09-26 16:47 | Observation (INO) | payer OTHER, SELFPAY ==
[2020-09-26] VITALS (9 sets, daily range): BP systolic 93–103; BP diastolic 51–63; PULSE 70–81; TEMP 37.1; BMI 30.2
[2020-09-26 18:02] LABS: Basophils Percent Auto 0.3 % (0.2-1.2); Eosinophils Percent Auto 0.3 % (0-4.4); Hemoglobin 10.9 g/dL (12.0-15.0); Immature Granulocyte Absolute 0.03 K/mm3 (0.00-0.031); Immature Granulocyte Percent A 0.4 % (0-0.5); Immature Platelet Fraction Pct 15.6 % (0.9-11.2); Lymphocytes Absolute Auto 1.72 K/mm3 (0.9-3.2); Mean Corpuscular Hemoglobin 31.1 pg (26-34); Mean Corpuscular Volume 94.3 fl (80-100); Mean Platelet Volume 13.3 fl (7.4-10.4); Monocytes Absolute Auto 0.5 K/mm3 (0.1-0.6); Monocytes Percent Auto 6.7 % (2.6-8.5); Neutrophils Absolute Auto 4.9 K/mm3 (1.3-6.7); Neutrophils Percent Auto 68.3 % (45.5-73.1); Platelet Count Result 124 k/mm3 (150-375); Red Cell Distribution Width 13.2 % (11.5-14.5); White Blood Count 7.2 K/mm3 (4.5-10.0)
[2020-09-26] MEDS: ACETAMINOPHEN 500 MG TABLET 1000 MG PO (18:18)
--- NOTE | 2020-09-26 18:19 | OBADM ---
This patient, Paris Vazquez, admitted to the OB room OB Post 116 for observation. Patient/family oriented to hospital policies and general routines including ID bracelet, bed and alarms, visiting hours, pain management, procedures, bathroom and other care routines, personal items, smoking policy, room service/diet, and visiting hours. Patient/Family are encouraged to report perceived risks to care and to ask questions if they do not understand what they are told or what they should do. Pt. presents with reports of L. lower abdominal pain. Pt. states she fell onto her R. side at approx. 1100 this a.m., denies bleeding but does report that she was wet after her fall, ROM plus to be completed. Pt. also reports DFM, EFM X2 applied, fhr appropriate for 25 weeks gestation.
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
--- NOTE | 2020-09-26 19:35 | PC.NURSE ---
Dr. Christine updated on pt lab work and tracing reviewed. Pt currently denies pain. Also informed Dr. Christine on the pt story of today events mentioned in previous note. Dr. Christine stated she was going to called Dr. Ignacio and then call RN back.
--- NOTE | 2020-09-26 19:38 | PC.NURSE ---
Dr. Christine called back. She discussed pt with Dr. Ignacio. Dr. Christine gave orders to discharge pt with labor precautions, check her cervix and have her schedule and appointment with Dr. Ignacio this week.
--- NOTE | 2020-09-26 19:59 | PC.NURSE ---
Discharge paperwork and labor precautions gone over with handout given. pt denies having questions and agrees to schedule an appointment with Dr. Ignacio this week. Pt states, her friend, Yessenia will be staying with her tonight.
--- NOTE | 2020-10-26 11:48 | PM.OBTRLD ---
OB - Triage/Final Diagnosis Visit Information Comments/Additional reasons for admission: I have assessed the risk for this patient, Paris Vazquez, and determined that she would benefit from observation care. Evaluation Laboratory results: Laboratory Tests 09/26/20 09/26/20 17:54 17:54 WBC 7.2 RBC 3.50 L Hgb 10.9 L Hct 33.0 L MCV 94.3 MCH 31.1 MCHC 33.0 RDW 13.2 Plt Count 124 L MPV 13.3 H Immature Gran % (Auto) 0.4 Neut % (Auto) 68.3 Lymph % (Auto) 24.0 Henderson % (Auto) 6.7 Eos % (Auto) 0.3 Baso % (Auto) 0.3 Lymph # (Auto) 1.72 Henderson # (Auto) 0.5 Eos # (Auto) 0.0 Baso # (Auto) 0.0 Abs Immat Gran (auto) 0.03 Absolute Neuts (auto) 4.9 Absolute Nucleated RBC 0.0 Nucleated RBC % 0.0 % Immature Plt Fraction 15.6 H KB Hemoglobin Negative Final Diagnosis (1) Abdominal pain during , antepartum: Code(s): O26.899 - Other specified related conditions, unspecified trimester; R10.9 - Unspecified abdominal pain Status: Acute
== END 2020-09-26 20:02 | disposition home or self-care (01) ==
PROVIDERS: Admitting Provider Student in an Organized Health Care Education/Training Program; PCP Physician Assistant; Visit Provider Obstetrics & Gynecology
DX: O26.892 Other specified pregnancy related conditions, second trimester (principal); R10.9 Unspecified abdominal pain; Z3A.25 25 weeks gestation of pregnancy
CPT/HCPCS: 36415; 85025; 85055; 85460; A9270; G0378; G0379

== ENCOUNTER 2020-09-27 10:09 | Observation (INO) | payer OTHER, SELFPAY ==
--- NOTE | ~2020-09-27 | US_ITS ---
EXAMINATION: US OB limited EXAM DATE: 09/27/2020 11:08 INDICATION: Abdominal pain post fall, wellbeing, placenta. 3rd trimester. TECHNIQUE: Pelvic obstetrical transabdominal sonogram was performed by a technologist. There are mu ltiple grayscale and Doppler images available for interpretation. There are no earlier studies of th is gestation for comparison. FINDINGS: There is a single fetus identified in vertex presentation with a heart rate of 148 beats pe r minute. The placenta is located in the anterior fundal position. There is no sonographic evidence of retroplacental hemorrhage identified. I phoned the technologist to confirm that she did not find a ny abnormality. IMPRESSION: Live intrauterine gestation, vertex presentation. Unremarkable placenta. Reviewed, dictated and finalized at location B. IMPRESSION: Live intrauterine gestation, vertex presentation. Unremarkable sondra centa.
[2020-09-27 10:27] VITALS: BP 95/60; PULSE 90; TEMP 37.1
[2020-09-27 10:30] VITALS: BP 98/53; PULSE 84
[2020-09-27 10:45] VITALS: BP 99/58; PULSE 95
[2020-09-27 11:17] VITALS: BMI 30.2
--- NOTE | 2020-09-27 11:21 | OBADM ---
This patient, Paris Vazquez, admitted to the OB room OB Post 116 for observation. Patient/family oriented to hospital policies and general routines including ID bracelet, bed and alarms, visiting hours, pain management, procedures, bathroom and other care routines, personal items, smoking policy, room service/diet, and visiting hours. Patient/Family are encouraged to report perceived risks to care and to ask questions if they do not understand what they are told or what they should do. Pt. presents reporting that the abdominal pain in her LLQ has increased since being DC'd home last night. Pt. was here for a fall she had yesterday and had been sent home after being evaluated and labwork done. Phone call to Dr. Ignacio, orders received.
[2020-09-27 11:36] VITALS: BP 96/56; PULSE 91
[2020-09-27 11:45] VITALS: BP 92/52; PULSE 90
[2020-09-27] MEDS: ACETAMINOPHEN 500 MG TABLET 1000 MG PO (11:52)
--- NOTE | 2020-11-04 12:32 | PM.OBTRLD ---
OB - Triage/Final Diagnosis Visit Information Comments/Additional reasons for admission: I have assessed the risk for this patient, Paris Vazquez, and determined that she would benefit from observation care. Final Diagnosis (1) Abdominal pain during , antepartum: Code(s): O26.899 - Other specified related conditions, unspecified trimester; R10.9 - Unspecified abdominal pain Status: Acute
== END 2020-09-27 12:13 | disposition home or self-care (01) ==
PROVIDERS: Admitting Provider Student in an Organized Health Care Education/Training Program; PCP Physician Assistant; Visit Provider Student in an Organized Health Care Education/Training Program
DX: O26.892 Other specified pregnancy related conditions, second trimester (principal); R10.9 Unspecified abdominal pain; Z3A.25 25 weeks gestation of pregnancy
CPT/HCPCS: 76815; A9270; G0378; G0379

== ENCOUNTER 2020-10-21 11:46 | Observation (INO) | payer OTHER, SELFPAY ==
[2020-10-21 12:52] VITALS: BMI 30.2
[2020-10-21 12:52] LABS: Add Urine Microscopic? YES; Appearance Urine Cloudy (Clear); Bacteria Urine Trace /hpf; Bilirubin Urine Negative (Negative); Blood Urine Negative (Negative); Color Urine Yellow (Yellow); Glucose Urine UA Negative (Negative); Ketones Urine Negative (Negative); Leukocyte Esterase Ur Negative LEU/UL (NEGATIVE); Mucus Urine Rare /lpf; Nitrate Urine Negative (Negative); Protein Urine 1+ mg/dL (Negative); Specific Grav Ur 1.023 (1.001-1.035); Squamous Epithelial Cell Urine Occasional /hpf (Few); Urobilinogen Urine Negative mg/dL (<2.0); WBC Urine 0-3 /hpf (0-3)
[2020-10-21 13:16] VITALS: BP 92/52; PULSE 70
--- NOTE | 2020-10-22 08:52 | PM.OBTRLD ---
OB - Triage/Final Diagnosis Visit Information Comments/Additional reasons for admission: I have assessed the risk for this patient, Paris Vazquez, and determined that she would benefit from observation care. Evaluation Laboratory results: Laboratory Tests 10/21/20 12:40 Urine Color Yellow Urine Appearance Cloudy H Urine pH 7.0 Ur Specific Alligator 1.023 Urine Protein 1+ H Urine Glucose (UA) Negative Urine Ketones Negative Ur Blood (Man) Negative Urine Nitrate Negative Urine Bilirubin Negative Urine Urobilinogen Negative Ur Leukocyte Esterase Negative Urine WBC 0-3 Ur Squamous Epith Cells Occasional Urine Bacteria Trace Urine Mucus Rare Vital signs: Vital Signs - 24 hr 10/21/20 13:16 Pulse Rate 70 Blood Pressure 92/52 L Final Diagnosis (1) Abdominal pain during , antepartum: Code(s): O26.899 - Other specified related conditions, unspecified trimester; R10.9 - Unspecified abdominal pain Status: Acute
== END 2020-10-21 13:49 | disposition home or self-care (01) ==
PROVIDERS: Admitting Provider Obstetrics & Gynecology; PCP Physician Assistant; Visit Provider Obstetrics & Gynecology
DX: O26.899 Other specified pregnancy related conditions, unspecified trimester (principal); R10.9 Unspecified abdominal pain; Z3A.00 Weeks of gestation of pregnancy not specified
CPT/HCPCS: 81001; 87086; G0378; G0379

== ENCOUNTER 2020-11-11 14:04 | Outpatient (CLI) | payer OTHER, SELFPAY ==
[2020-11-11 15:25] LABS: Glucose 1 Hour PP 50gm Dose 113 mg/dL
== END 2020-11-11 14:05 | disposition home or self-care (01) ==
LOC: ANHLAB 14:06
PROVIDERS: PCP Physician Assistant; Visit Provider Student in an Organized Health Care Education/Training Program
DX: Z34.90 Encounter for supervision of normal pregnancy, unspecified, unspecified trimester (principal); Z3A.00 Weeks of gestation of pregnancy not specified
CPT/HCPCS: 36415; 82947

== ENCOUNTER 2020-11-25 10:16 | Outpatient (CLI) | payer OTHER, SELFPAY ==
[2020-11-25 10:40] LABS: Basophils Percent Auto 0.3 % (0.2-1.2); Eosinophils Percent Auto 0.3 % (0-4.4); Hemoglobin 10.8 g/dL (12.0-15.0); Immature Granulocyte Absolute 0.07 K/mm3 (0.00-0.031); Immature Granulocyte Percent A 1.2 % (0-0.5); Lymphocytes Absolute Auto 1.36 K/mm3 (0.9-3.2); Lymphocytes Percent Auto 22.5 % (18.3-44.2); Mean Corpuscular HGB Conc 32.7 g/dl (32-36); Mean Corpuscular Hemoglobin 30.7 pg (26-34); Mean Corpuscular Volume 93.8 fl (80-100); Mean Platelet Volume 12.9 fl (7.4-10.4); Monocytes Absolute Auto 0.4 K/mm3 (0.1-0.6); Monocytes Percent Auto 5.8 % (2.6-8.5); Neutrophils Absolute Auto 4.2 K/mm3 (1.3-6.7); Neutrophils Percent Auto 69.9 % (45.5-73.1); Platelet Count Result 111 k/mm3 (150-375); Red Blood Count 3.52 M/mm3 (4.2-5.4); Red Cell Distribution Width 13.2 % (11.5-14.5); White Blood Count 6.1 K/mm3 (4.5-10.0)
[2020-11-25 11:36] LABS: HIV 1/2 Ab P24 Ag Result Negative (Negative)
[2020-11-26 11:50] LABS: Rapid Plasma Reagin Non-Reactive (NonReactive)
== END 2020-11-25 10:17 | disposition home or self-care (01) ==
PROVIDERS: PCP Physician Assistant; Visit Provider Student in an Organized Health Care Education/Training Program
DX: Z34.83 Encounter for supervision of other normal pregnancy, third trimester (principal); Z3A.00 Weeks of gestation of pregnancy not specified
CPT/HCPCS: 36415; 85025; 86592; 86703; G0432

== ENCOUNTER 2020-12-07 20:41 | Outpatient (RCR) | payer OTHER, SELFPAY | END 2021-01-05 08:17 | disposition home or self-care (01) | LOC: ANHOBOP 20:41 | PROVIDERS: PCP Physician Assistant; Visit Provider Student in an Organized Health Care Education/Training Program | DX: O36.0130 Maternal care for anti-D [Rh] antibodies, third trimester, not applicable or unspecified (principal); Z3A.35 35 weeks gestation of pregnancy | CPT/HCPCS: 59025 ==

== ENCOUNTER 2021-01-03 07:08 | Inpatient (IN) | payer OTHER, SELFPAY ==
--- NOTE | 2020-12-31 19:38 | WPDANESEPP ---
Anes - Eval Pre Procedure Procedure: Operation Date: 01/03/21 09:00 Proposed Procedures p Section - Annalisa Ignacio MD Date/Time: 12/31/20 19:38 Pre Op Diagnosis: Pre Admit, previous csection Patient Data Age: 25 Gender: F Height: Weight: Allergies Allergy/AdvReac Type Severity Reaction Status Date / Time No Known Allergies Allergy Mild Verified 12/30/20 14:33 Home Medications Medication Instructions Recorded Confirmed Type prenat.vits,osmar,[id number]-[id number] 1 tablet PO DAILY 06/09/20 12/09/20 History Patient hx anesthesia problems: none Family hx anesthesia problems: none PMFSH Past Medical History Medical History (Updated 12/31/20 @ 19:39 by Nabeel Ferguson DO) Abdominal pain during , antepartum Anxiety Depression Migraine Miscarriage x 5 Thrombocytopenia affecting Surgical History Surgical History History of section History of cholecystectomy History of dilation and curettage x 2 Hx of cholecystectomy Family History Family History Grandparent Cerebrovascular accident Family history of type 2 diabetes mellitus Other Family history of malignant neoplasm of ovary Social History Social History Smoking status: Never smoker Alcohol intake: never Substance use: never Gender identity (if verbalized by the patient): Female Spiritual care concerns: No Exam Day of Procedure 12/31/20 19:38
[2021-01-03] VITALS (57 sets, daily range): BP systolic 67–158; BP diastolic 44–139; PULSE 55–225; RESP 14–20; TEMP 35.8–36.9; O2SAT 99–100; BMI 34.9
--- NOTE | 2021-01-03 07:08 | LDADM ---
This patient, Paris Vazquez, was admitted to Labor/Delivery/Recovery 119 on 01/03/21 at 07:08. Plans for labor, pain management and were discussed with patient. Patient/family oriented to hospital policies and general routines including ID bracelet, bed and alarms, visiting hours, pain management, procedures, bathroom and other care routines, personal items, smoking policy, room service/diet and guest tray routines, security routines, and visiting hours. Patient/Family are encouraged to report perceived risks to care and to ask questions if they do not understand what they are told or what they should do. See OBIX for further documentation.
[2021-01-03 07:49] LABS: Basophils Percent Auto 0.1 % (0.2-1.2); Eosinophils Percent Auto 0.3 % (0-4.4); Hematocrit 36.7 % (37.0-47.0); Hemoglobin 11.7 g/dL (12.0-15.0); Immature Granulocyte Absolute 0.06 K/mm3 (0.00-0.031); Immature Granulocyte Percent A 0.9 % (0-0.5); Immature Platelet Fraction Pct 16.3 % (0.9-11.2); Lymphocytes Absolute Auto 1.59 K/mm3 (0.9-3.2); Lymphocytes Percent Auto 23.7 % (18.3-44.2); Mean Corpuscular HGB Conc 31.9 g/dl (32-36); Mean Corpuscular Volume 94.1 fl (80-100); Mean Platelet Volume 13.6 fl (7.4-10.4); Monocytes Absolute Auto 0.5 K/mm3 (0.1-0.6); Monocytes Percent Auto 7.6 % (2.6-8.5); Neutrophils Absolute Auto 4.5 K/mm3 (1.3-6.7); Neutrophils Percent Auto 67.4 % (45.5-73.1); Platelet Count Result 138 k/mm3 (150-375); Red Cell Distribution Width 14.2 % (11.5-14.5); White Blood Count 6.7 K/mm3 (4.5-10.0)
[2021-01-03] MEDS: LACTATED RINGERS 1,000 ML 125 ML IV CONT ×2 (07:49→10:25)
--- NOTE | 2021-01-03 08:35 | WPDANESEFPP ---
Anes - Eval Final PreProcedure Day of Procedure 01/03/21 08:35 Patient weight: obese Heart: regular rate and rhythm Lungs: clear to auscultation Airway: Mallampati scale class 1 Neurological: alert and oriented Last oral intake: >/= 8 hours ASA classification: II Emergent: no Anesthetic plan: proceed Anesthesia type and monitoring: regional spinal and standard monitoring Informed Consent: The patient's anesthetic plan and its attendant risks and benefits were discussed with the patient/family/POA. Questions were solicited and answers provided to the satisfaction of the patient/family/POA.
--- NOTE | 2021-01-03 08:53 | PM.IMHP ---
H&P: HPI History of Present Illness Date/Time: 01/03/21 08:53 Patient is a 25-year-old last menstrual period 04/04/2020 currently 39 weeks and 1 day gestation with an CAREY 01/09/2021. Patient is dated by LMP consistent with an ultrasound on 05/26/2020 at 6 weeks gestation. Patient presents to Labor and delivery for scheduled repeat section at term. Patient reports feeling well today. Denies any vaginal bleeding, leakage of fluid, or contractions. Reports good movement. Chief Complaint: Previous section x 1 Review of Systems Review of Systems: All systems reviewed & are unremarkable except as noted in HPI and below Constitutional: Constitutional: Reports as per HPI, Reports no additional constitutional complaints, Denies chills, Denies fever(s), Denies headache(s) and Denies night sweats Eyes: Eyes: Reports as per HPI and Reports no additional eye complaints ENT: Reports system reviewed and no additional complaints, except as documented, Reports as per HPI, Reports Normal hearing present and Denies headache(s) Cardiovascular: Cardiovascular: Reports as per HPI, Reports no additional cardiovascular complaints, Denies chest pain and Denies dyspnea Respiratory: Respiratory: Reports as per HPI, Reports no additional respiratory complaints, Denies cough and Denies dyspnea Gastrointestinal: Gastrointestinal: Reports as per HPI, Reports no additional gastrointestinal complaints, Denies abdominal pain, Denies change in bowel habits, Denies change in stool character, Denies nausea and Denies vomiting Genitourinary: Genitourinary: Reports no additional female genitourinary complaints, Reports as per HPI, Denies abnormal vaginal bleeding, Denies genital lesions, Denies hot flashes, Denies dyspareunia, Denies pelvic pain, Denies sexual dysfunction, Denies urinary incontinence, Denies vaginal discharge, Denies vaginal dryness and Denies vaginal odor Musculoskeletal: Musculoskeletal: Reports no additional musculoskeletal complaints and Reports as per HPI Integumentary/Breasts: Skin/Breast: Reports system reviewed and no additional complaints, except as docu, Reports as per HPI, Denies breast pain and Denies nipple discharge Neurologic: Reports system reviewed and no additional complaints, except as documented, Reports as per HPI, Reports Normal hearing present and Denies headache(s) Psychiatric: Psychiatric: Reports no additional psychiatric complaints, Reports as per HPI, Denies anxiety and Denies depression Endocrine: Endocrine: Reports no additional endocrine complaints and Reports as per HPI Hematologic/Lymphatic: Hematologic/Lymphatic: Reports no additional hematologic/lymphatic complaints and Reports as per HPI Allergic/Immunologic: Allergic/Immunologic: Reports no additional allergic/immunologic complaints and Reports as per HPI PMFSH Past Medical History Medical History Abdominal pain during , antepartum Anxiety Depression Migraine Miscarriage x 5 Thrombocytopenia affecting Surgical History Surgical History History of section History of cholecystectomy History of dilation and curettage x 2 Hx of cholecystectomy Family History Family History Grandparent Cerebrovascular accident Family history of type 2 diabetes mellitus Other Family history of malignant neoplasm of ovary Social History Social History Smoking status: Never smoker Second hand tobacco smoke exposure: No Alcohol intake: never Substance use: never Gender identity (if verbalized by the patient): Female Spiritual care concerns: No Meds Home Medications and Allergies Home Medications Medication Instructions Recorded Confirmed Type prenat.vits,osmar,[id number]-[id number] 1 tablet PO
--- NOTE | 2021-01-03 08:58 | WPDHPUPDATE1 ---
History and Physical Update Update Date/Time: 01/03/21 08:58 History and Physical has been reviewed, including an updated exam of the patient. There are NO changes in the patient's condition. Risks, benefits, and alternatives have been discussed and questions answered. Patient agrees to proceed with procedure.
[2021-01-03] MEDS: ceFAZolin 2 GM/D5W 50 ML 2 GM/50 ML BAG IVPB (09:13)
--- NOTE | 2021-01-03 10:20 | W.PM.PROC2 ---
Procedure Note - Detailed Date of Procedure 01/03/21 Pre-op Diagnosis Previous c/section Post-op Diagnosis same Procedure Performed Repeat low transverse section via Pfannenstiel Surgeon Annalisa Ignacio MD Treer Sari Jade Anesthesia spinal Findings Live female in cephalic presentation, apgars 8/9, weighing 7 lbs. 1 oz., clear amniotic fluid, normal appearing uterus, ovaries, and fallopian tubes bilaterally Description of Procedure The patient was taken to the operating room, where she self-transferred to the operating room table. Spinal anesthesia was administered and found to be adequate. The patient was placed in dorsal supine position with a leftward tilt. She was prepped and draped in the usual sterile fashion. Spinal anesthesia was tested and found to be adequate. A Pfannenstiel skin incision was made with a scalpel and carried through to underlying layer of fascia with the Bovie. The fascia was incised in the midline and the incision was extended laterally with the use of forceps and Lima scissors. The inferior aspect of the fascial incision was grasped with Luann clamps, elevated, and the underlying rectus muscle were dissected off with Lima scissors. Attention was then turned to the superior aspect of the fascial incision, which in a similar manner, was grasped with Luann clamps, elevated, and the underlying rectus muscles were also dissected off with Lima scissors. The rectus muscles were in the midline and the peritoneal cavity was entered bluntly. This incision was extended superiorly and inferiorly with good visualization of the bladder and care was taken to avoid blood vessels. A bladder blade was inserted. The vesicouterine peritoneum was identified and incised sharply with Metzenbaum scissors. This incision was extended laterally with Metzenbaum scissors and a bladder flap was created digitally. The bladder blade was replaced. A low-transverse uterine incision was made with a scalpel. This incision was extended laterally with bandage scissors. Amniotomy was performed. Clear amniotic fluid was noted. The infant's head was grasped and gently guided to the level of the uterine incision. An attempt was made to deliver 's head, however, unsuccessful. After another two attempts, decision was made to apply Kiwi vacuum. Popoff occurred twice. Rectus muscles were transected bilaterally approx. 1 cm and uterine incision was also extended. The infant's head was then delivered atraumatically without difficulty followed by the neck, shoulders, and rest of body with gentle fundal pressure. The 's nose and mouth were suctioned bulb suction. The cord was clamped and cut and the infant was handed off to waiting nursing staff. A segment of cord was collected for cord gases. Cord blood was also collected. The placenta was then delivered manually with gentle uterine massage. Uterus was exteriorized and cleared of all clots and debris. The uterine incision was reapproximated with 0 Vicryl in a running, locked fashion. A second imbricating layer using 0 Monocryl performed. Excellent hemostasis was noted. On inspection, the uterus, ovaries, and fallopian tubes appeared to be normal bilaterally. The uterus was replaced into the abdominal cavity. The gutters were cleared of all clots and debris. The uterine incision was inspected again and noted to be hemostatic. Hemaderm was applied across the uterine incision. Interceed was also applied across the uterine incision and anterior surface of the uterus. The peritoneum was reapproximated with 2-0 Monocryl. The rectus muscle bellies were inspected. A pinpoint area of bleeding was noted on the inferior edge of the left muscle. This area was made hemostatic with bovie. The fascia was then closed with 0 Vicryl in a running fashion. The subcutaneous layer was irrigated with water. Pinpoint areas of bleeding were made hemostatic with Bovie. The subcutaneous layer was reapproximated with 2-0 plain
--- NOTE | 2021-01-03 10:27 | PM.OBPRVD ---
OB - Delivery Note Procedure Delivery date: 01/03/21 Procedure: Procedures Operation Date: 01/03/21 09:00 <No data on this case meets the specified criteria> events: Previous Route of delivery: Quantitative Blood Loss (ml): 565 Anesthesia type: Spinal Disposition: PACU Complications: No immediate complications [place] Baby Date of : 01/03/21 Time of : 09:40 Weeks of gestation at delivery: 39 (39.1) gender: Female Weight (pounds): 7 Weight (ounces): 1 presentation: vertex position: Right Occiput Transverse Placenta delivery description: Manual Removal cord vessel description: 3 Vessels score one minute: 8 score five minutes: 9
[2021-01-03] MEDS: MEPERIDINE HCL INJ (*CRX) 50 MG/ML AMPUL (10:36)
[2021-01-03] MEDS: OXYTOCIN 30 UNITS/NS 500 ML 30 UNITS/500 ML BAG 125 UNITS IV CONT (12:32)
--- NOTE | 2021-01-03 12:40 | PC.NURSE ---
PT arrived on unit via stretcher and moved to bed via maxi air with out difficulty. PT alert and awake and introductions made and plan of care discussed per post op c section, pain management, breast feeding, supplementing, daily care activities. PT sole recipient of such instructions. no barriers to learning identified . PT received instructions this shift via one to one discussion, mom baby care guide and demonstration. PT oriented to room 286 and surrounding area. Pt verbalized understanding of such care.
[2021-01-03] MEDS: KETOROLAC 30 MG/ML VIAL (*BKC) IV PUSH (17:03)
[2021-01-03] MEDS: LANOLIN (LANSINOH) 7.5 GM CREAM 1 APPLIC TOPICAL (17:05)
[2021-01-03] MEDS: ACETAMINOPHEN 325 MG TABLET 650 MG PO (17:09)
[2021-01-03] MEDS: SIMETHICONE 80 MG TAB.CHEW PO (17:11)
[2021-01-03] MEDS: DOCUSATE SODIUM 100 MG CAPSULE PO (17:11)
[2021-01-03] MEDS: DEXTROSE 5%/0.45% SOD CHL 1,000 ML 125 ML IV CONT (17:30)
[2021-01-04] VITALS: BP 92/52; PULSE 72; RESP 16; TEMP 36.3; O2SAT 100
[2021-01-04 05:00] VITALS: BP 90/52; PULSE 81; RESP 16; TEMP 37.2; O2SAT 96
[2021-01-04] MEDS: ACETAMINOPHEN 325 MG TABLET 650 MG PO (05:12)
[2021-01-04 05:49] LABS: Basophils Percent Auto 0.2 % (0.2-1.2); Eosinophils Percent Auto 0.3 % (0-4.4); Hematocrit 28.3 % (37.0-47.0); Hemoglobin 9.1 g/dL (12.0-15.0); Immature Granulocyte Absolute 0.03 K/mm3 (0.00-0.031); Immature Granulocyte Percent A 0.5 % (0-0.5); Immature Platelet Fraction Pct 15.5 % (0.9-11.2); Lymphocytes Absolute Auto 0.96 K/mm3 (0.9-3.2); Lymphocytes Percent Auto 15.8 % (18.3-44.2); Mean Corpuscular HGB Conc 32.2 g/dl (32-36); Mean Corpuscular Hemoglobin 30.3 pg (26-34); Mean Corpuscular Volume 94.3 fl (80-100); Mean Platelet Volume 13.7 fl (7.4-10.4); Monocytes Absolute Auto 0.5 K/mm3 (0.1-0.6); Monocytes Percent Auto 7.4 % (2.6-8.5); Neutrophils Absolute Auto 4.6 K/mm3 (1.3-6.7); Neutrophils Percent Auto 75.8 % (45.5-73.1); Platelet Count Result 93 k/mm3 (150-375); Red Cell Distribution Width 14.3 % (11.5-14.5); White Blood Count 6.1 K/mm3 (4.5-10.0)
[2021-01-04 08:00] VITALS: BP 100/64; PULSE 86; RESP 16; RESP 18; TEMP 36.6; O2SAT 100
[2021-01-04] MEDS: POLYSACCHARIDE IRON COMPLEX 150 MG CAPSULE PO ×2 (08:17→17:27)
[2021-01-04] MEDS: MULTIVIT/MIN/PREN/FOL AC/IRON TABLET 1 TAB PO (08:17)
[2021-01-04] MEDS: SIMETHICONE 80 MG TAB.CHEW PO ×2 (08:17→17:27)
[2021-01-04] MEDS: IBUPROFEN 600 MG TABLET PO ×2 (08:18→17:27)
[2021-01-04] MEDS: DOCUSATE SODIUM 100 MG CAPSULE PO ×2 (08:18→17:27)
--- NOTE | 2021-01-04 08:34 | P.PNOB_ITS ---
OB - PN: Subj Subjective Date/time seen: 01/04/21 08:34 Patient doing well this morning. Pain well controlled medication. Patient denies any headache, chest pain, shortness of breath, nausea, or vomiting. Tolerating regular p.o. diet. Benavidez catheter removed this morning. Has voided afterwards and denies any issues. Ambulating without difficulty. Passing flatus. OB - PN: Obj Data Labs CBC & Chem 7: 01/04/21 05:00 Labs: Laboratory Results - last 24 hr 01/03/21 01/04/21 07:37 05:00 WBC 6.1 RBC 3.00 L Hgb 9.1 L Hct 28.3 L MCV 94.3 MCH 30.3 MCHC 32.2 RDW 14.3 Plt Count 93 L MPV 13.7 H Immature Gran % (Auto) 0.5 Neut % (Auto) 75.8 H Lymph % (Auto) 15.8 L [place] % (Auto) 7.4 Eos % (Auto) 0.3 Baso % (Auto) 0.2 Lymph # (Auto) 0.96 [place] # (Auto) 0.5 Eos # (Auto) 0.0 Baso # (Auto) 0.0 Abs Immat Gran (auto) 0.03 Absolute Neuts (auto) 4.6 Absolute Nucleated RBC 0.0 Nucleated RBC % 0.0 % Immature Plt Fraction 15.5 H Blood Type O Positive Antibody Screen Negative OB - PN A/P Assessment and Plan (1) Delivery by section of full-term infant: Code(s): O82 - Encounter for delivery without indication Status: Acute Assessment and Plan: POD#1 doing well continue routine postoperative care encourage ambulation and use of IS Time Spent With Patient Time: Total time spent is greater than 50% in coordination of care (as documented) at patient's floor/unit and/or counseling patient: Exam Const: General: cooperative, healthy appearing, comfortable and no acute distress GI: Inspection: non-distended GI Palp: Yes Soft to palpation and Yes Tenderness to palpation present (GI) (appropriately tender) Other: inc covered with bandage; bandage c/d/i Extrem: Right lower extremity: no edema Left lower extremity: no edema Other: no calf tenderness
--- NOTE | 2021-01-04 09:30 | PC.NURSE ---
Consult with pt., mother reports is waking to feed without difficulties or discomfort. Mother reports this to be 3rd child to breastfeed. Reviewed feeding cues, frequencies, duration of feedings, feeding elimination flow sheet, and signs of adequate intake. Nipple care reviewed. Instructed mother to call out for RN assistance if she is unable to latch infant for feeding or she has discomfort with nursing. Instructed feeding should be initiated three hours from start of last feeding or if feeding cues are noted before. Mother voiced understanding of information shared.
--- NOTE | 2021-01-04 14:54 | WPDANLDPN2 ---
Anes-Prog Note L&D Date/Time: 01/04/21 14:54 Comfortable throughout: section Neuraxial method: spinal Epidural/Spinal procedure site: clean & non-tender Neuro status: Neuro function grossly intact. Cardiovascular status: normal Respiratory status: normal Airway patency: baseline Mental status: baseline Post-Op hydration status: normal Vital Signs: Last Vital Signs Temp 36.6 C 01/04/21 08:00 Pulse 86 01/04/21 08:00 Resp 18 01/04/21 08:00 BP 100/64 01/04/21 08:00 Pulse Ox 100 01/04/21 08:00 Pain score (VAS): 2 I/O: Intake & Output 01/03/21 01/04/21 01/04/21 23:59 07:59 15:59 Intake Total 1100 1600 600 Output Total 400 1450 1275 Balance 700 150 -675 Post-procedural complaints: none Patient feedback: Patient satisfied with anesthetic care.
--- NOTE | 2021-01-04 14:54 | WPDANLDNPN2 ---
Anes-Prog Note L&D-Neuraxial Date/Time: 01/04/21 14:54 Neuraxial medications: intrathecal PF morphine Opiod-related complaints: none Patient feedback: Patient satisfied with post-operative pain management.
[2021-01-04] MEDS: HYDROcodone/acetaminophen (*CRX) 5-325 MG TABLET 1 TAB PO (17:28)
[2021-01-04 18:33] VITALS: BP 85/43; PULSE 72; RESP 16; TEMP 36.6; O2SAT 97
[2021-01-04 20:45] VITALS: BP 100/50
[2021-01-05] MEDS: IBUPROFEN 600 MG TABLET PO ×2 (00:06→07:31)
[2021-01-05] MEDS: HYDROcodone/acetaminophen (*CRX) 5-325 MG TABLET 1 TAB PO ×3 (00:07→11:21)
[2021-01-05 06:50] LABS: Rapid Plasma Reagin Non-Reactive (NonReactive)
[2021-01-05] MEDS: MULTIVIT/MIN/PREN/FOL AC/IRON TABLET 1 TAB PO (07:30)
[2021-01-05] MEDS: POLYSACCHARIDE IRON COMPLEX 150 MG CAPSULE PO (07:30)
[2021-01-05] MEDS: SIMETHICONE 80 MG TAB.CHEW PO (07:30)
[2021-01-05] MEDS: DOCUSATE SODIUM 100 MG CAPSULE PO (07:30)
[2021-01-05 08:00] VITALS: BP 90/48; PULSE 65; RESP 18; TEMP 36.2
--- NOTE | 2021-01-05 08:00 | PC.NURSE ---
Patient was given the opportunity to view the discharge video Mother & Baby Care, The First Two Weeks and to ask questions. Patient declined viewing the video and has been given the mother/baby guide for home reference.
--- NOTE | 2021-01-05 08:01 | PM.OBPNVD ---
OB - PN: Subj Subjective Date/time seen: 01/05/21 08:02 Patient comments: no complaints, pain well controlled, tolerating diet, flatus present and other (Ambulating and voiding without problems. Lochia similar to menses) baby status: doing well OB - PN: Obj Data Labs CBC & Chem 7: 01/04/21 05:00 Labs: Laboratory Results - last 24 hr 01/03/21 07:37 RPR Non-reactive OB - PN A/P Plan day: 2 (s/p C section, doing well) Plan: routine care and discharge home (Follow up in 1-2 weeks) Time Spent With Patient Time: Total time spent is greater than 50% in coordination of care (as documented) at patient's floor/unit and/or counseling patient: Time with patient: less than 15 minutes Exam Const: General: no acute distress Resp: Auscultation: clear to auscultation bilaterally Cardio: Rate: regular rate Rhythm: regular rhythm GI: Inspection: non-distended, incision (Intact without erythema, drainage, or induration) and other (Fundus firm and nontender below umbilicus) GI Palp: Yes abdominal tenderness (appropriate) and Yes Soft to palpation Extrem: General: no edema
--- NOTE | 2021-01-05 08:03 | PM.OBDSVD ---
DS: Admitting Diagnosis Admitting Diagnosis full term , prior c section DS: Discharge Diagnosis Discharge Diagnosis (1) Delivery by section of full-term : Code(s): O82 - Encounter for delivery without indication Status: Acute OB - DS: Summary OB Procedures : None OB Procedures Intrapartum: OB Procedures: : None Peripartum Data Delivery Method: Section Procedures: Procedures Operation Date: 01/03/21 09:00 Actual Procedure Side Surgeon p Section Annalisa Ignacio MD complications: none Status at Discharge Functional status at discharge: independent ambulation Overall status at discharge: patient is progressing back to baseline Time Spent with Patient Time attestation: Total time spent providing and/or coordinating discharge services: Time spent: Less than 30 minutes DS: Data Data Completed and Pending Labs on day of discharge: Labs from last 24 hours 01/03/21 07:37 RPR Non-reactive Discharge Plan Discharge Attending physician on discharge: Annalisa Ignacio Discharging Clinician: [place] Patient Disposition: Home, Self-Care Activity: may shower and pelvic rest Diet: as tolerated Wound Care Instructions: incision open to air Patient Instructions: Antibiotic Form Stand Alone Forms: General Discharge Information Follow-up/Referrals: Annalisa Ignacio MD [Physician] - 2 Weeks Discharge Medications: New hydrocodone-acetaminophen 5-325 mg Tablet 1 tablet PO Q4H PRN (Reason: Moderate Pain (4-6)) Qty: 30 RF: 0 ibuprofen 600 mg Tablet 600 mg PO Q6H PRN (Reason: Cramping) Qty: 60 RF: 0 Continued prenat.vits,osmar,[id number] Tablet 1 tablet PO DAILY RF: 0 Date of admission: 01/03/21 07:08 Primary Care Provider: Mohan,Mirian Quinones Admitting Provider: Annalisa Ignacio Attending physician on admission: Annalisa Ignacio Condition: Stable
--- NOTE | 2021-01-05 08:15 | PC.NURSE ---
Observed mother is able to independently latch with appropriate positioning/alignment. She denies any nipple discomfort, is feeding as required and waking infant to feed if needed. has had at least 8 effective feedings in the past 24 hours, and is currently meeting outcomes for weight, output, jaundice and feeding frequencies. Mother states she feels confident to continue effective and supplementing at home. Mother plans to discontinue supplement once her milk is in. Reviewed transition to breast milk, signs of adequate intake, and engorgement/relief. Instructed to call ICP if intake/output less than required. Reviewed regular medications mother is taking. Information provided per [place]. Reviewed community resources on the [facility] website and in the Mom/Baby guide. Information on outpatient services provided. Mother has no further questions at this time.
--- NOTE | 2021-01-05 08:55 | PC.NURSE ---
Self care and infant care discharge instructions given including follow up visit date and time. Pt. verbalized understanding. No questions or concerns voiced. at this time.
[2021-01-05] MEDS: MEASLES,MUMPS,RUBELLA VACCINE 0.5 ML VIAL SUB-Q (11:19)
== END 2021-01-05 11:58 | disposition home or self-care (01) | DRG 540 ==
LOC: ANHOB2 01-05 09:13 → ANHLDR 01-06 12:21 → ANHOB2 01-06 12:21
PROVIDERS: Admitting Provider Student in an Organized Health Care Education/Training Program; PCP Physician Assistant; Visit Provider Obstetrics & Gynecology
PROC: 10D00Z1 Extraction of Products of Conception, Low, Open Approach (ICD-10-PCS; CPT 59514; principal; 2021-01-03 09:00)
DX: O34.211 Maternal care for low transverse scar from previous cesarean delivery (principal); O99.12 Other diseases of the blood and blood-forming organs and certain disorders involving the immune mechanism complicating childbirth; D69.6 Thrombocytopenia, unspecified; Z3A.39 39 weeks gestation of pregnancy; Z37.0 Single live birth
CPT/HCPCS: 36415; 85025; 85055; 86592; 86850; 86900; 86901; 90710; A9270; J0131; J0690; J1885; J2175; J2250; J2274; J2590; J7120

== ENCOUNTER 2021-03-13 11:04 | Emergency (ER) | payer OTHER, SELFPAY ==
[2021-03-13 12:06] VITALS: BP 99/49; PULSE 65; RESP 16; TEMP 36.6; O2SAT 98
[2021-03-13] MEDS: SODIUM CHLORIDE 0.9% IV 1,000 ML 999 ML IV CONT (12:44)
[2021-03-13 12:45] LABS: Basophils Percent Auto 0.2 % (0.2-1.2); Eosinophils Percent Auto 0.4 % (0-4.4); Hematocrit 40.4 % (37.0-47.0); Hemoglobin 13.6 g/dL (12.0-15.0); Immature Granulocyte Absolute 0.01 K/mm3 (0.00-0.031); Immature Granulocyte Percent A 0.2 % (0-0.5); Lymphocytes Absolute Auto 1.87 K/mm3 (0.9-3.2); Lymphocytes Percent Auto 36.1 % (18.3-44.2); Mean Corpuscular HGB Conc 33.7 g/dl (32-36); Mean Corpuscular Hemoglobin 29.8 pg (26-34); Mean Corpuscular Volume 88.4 fl (80-100); Monocytes Absolute Auto 0.4 K/mm3 (0.1-0.6); Monocytes Percent Auto 7.1 % (2.6-8.5); Neutrophils Absolute Auto 2.9 K/mm3 (1.3-6.7); Platelet Count Result 174 k/mm3 (150-375); Red Blood Count 4.57 M/mm3 (4.2-5.4); Red Cell Distribution Width 12.2 % (11.5-14.5); White Blood Count 5.2 K/mm3 (4.5-10.0)
--- NOTE | 2021-03-13 12:52 | ED.FEMALEGU ---
HPI - Female Genitourinary General Chief complaint: Vaginal Bleeding Stated complaint: vag bleed Time Seen by Provider: 03/13/21 12:21 Source: patient Mode of arrival: ambulatory Limitations: no limitations History of Present Illness HPI Narrative: Patient is 25 years old white female, status post delivery 2 months ago, status post Depo placement 2 months ago, developed vaginal bleeding 10 days ago, gradually getting worse, no blood clots, no cramps, today the flow with so severe associated with lightheadedness. Patient is 8, para 3, 5, does not smoke or drink or uses drugs, does not take medicine at home. Lactating and bottle use at this time. Patient denies any fever, chills, nausea, vomiting, abdominal pain. Related Data Allergies Allergy/AdvReac Type Severity Reaction Status Date / Time No Known Allergies Allergy Mild Verified 02/18/21 10:21 Review of Systems Review of Systems: CONSTITUTIONAL: Denies fever, chills, or sweats. EYES: Denies visual changes, redness, or discharge. ENT: Denies rhinorrhea, congestion, sore throat, or otalgia. CARDIOVASCULAR: Denies chest pain, palpitations, or edema. RESPIRATORY: Denies cough or dyspnea. GASTROINTESTINAL: Denies abdominal pain, nausea, vomiting, or diarrhea. GENITOURINARY: Denies dysuria or hematuria. SKIN: Denies rash or itching. MUSCULOSKELETAL: Denies back pain, joint pain, or myalgia. NEUROLOGIC: Denies headache, numbness, or weakness. PSYCHIATRIC: Denies anxiety or depression. [facility] Past Medical History Medical History Abdominal pain during , antepartum Anxiety Depression Migraine Miscarriage x 5 Thrombocytopenia affecting Surgical History Surgical History History of section History of cholecystectomy History of dilation and curettage x 2 Hx of cholecystectomy Family History Family History Grandparent Cerebrovascular accident Family history of type 2 diabetes mellitus Other Family history of malignant neoplasm of ovary Social History Social History Smoking status: Never smoker Second hand tobacco smoke exposure: No Alcohol intake: never Substance use: never Gender identity (if verbalized by the patient): Female Spiritual care concerns: No Exam Narrative: General appearance: Well-developed, well-nourished, looks tired and weak Skin: Normal color Head: Normocephalic, nontraumatic Eyes: Clear conjunctiva ENT: Oropharynx normal, ears normal, nose normal Neck: Supple, nontender Chest and respiratory: Airway patent, no respiratory distress, no accessory muscle use Heart: Regular rate/rhythm Abdomen: Soft, nontender, no organomegaly, quiet bowel sounds Vascular: Normal peripheral pulses, normal capillary refill. Musculoskeletal: Normal range of motion, nontender back Neurologic: Alert and oriented ?3, [employer] is normal as tested, no gross motor deficit : Bimanual exam- vagina & uterus: normal bimanual exam, normal palpation and uterine size normal Bimanual Exam- Adnexa, other: normal adnexae and No adnexal tenderness Amniotic Fluid: other (2long Q-tip was enough to dry the whole vaginal pouch. No active bleedi) Course Course Emergency Course: Stable, improving Consultations Consultation #1: Dr. Ignacio Date: 03/13/21 Time: 15:10 Vital Signs Vital signs: Vital Signs Temperature 36.6 C 03/13/21 12:06 Pulse Rate 65 03/13/21 12:06 Respiratory Rate 16 03/13/21 12:06 Blood Pressure 99/49 L
[2021-03-13 13:11] LABS: Pregnancy On Board Control Positive; Urine Pregnancy Test Negative
[2021-03-13 15:11] VITALS: BP 111/52; PULSE 78; RESP 18; O2SAT 99
[2021-03-13 15:46] VITALS: BP 105/56; PULSE 59; RESP 18; O2SAT 100
[2021-03-16 05:33] LABS: HCG Tumor Marker <3 mIU/mL (***)
== END 2021-03-13 15:59 | disposition home or self-care (01) ==
PROVIDERS: Emergency Provider Emergency Medicine; PCP Physician Assistant
DX: N93.9 Abnormal uterine and vaginal bleeding, unspecified (principal)
CPT/HCPCS: 36415; 81025; 84702; 85025; 96360; 96361; 99284; J7030

== ENCOUNTER 2021-07-18 10:50 | Outpatient (CLI) | payer OTHER, SELFPAY ==
[2021-07-18 11:39] LABS: Beta HCG Quantitative < 2.39 mIU/ML
== END 2021-07-18 10:51 | disposition home or self-care (01) ==
LOC: ANHLAB 10:53
PROVIDERS: PCP Physician Assistant; Visit Provider Student in an Organized Health Care Education/Training Program
DX: Z30.42 Encounter for surveillance of injectable contraceptive (principal)
CPT/HCPCS: 36415; 84702